=== PATIENT | male | born 1965 | race Caucasian/White ===

== ENCOUNTER 2021-08-05 06:12 | Day surgery (SDC) | payer OTHER ==
[~2021-08-05] VITALS: Ht 182.9 cm; Wt 86.2 kg
[~2021-08-05 06:12] MED LIST: PROAIR HFA8.5 GM INH; SINGULAIR 10 MG10 M1 PO; VITAMIN C500 M1 PO; VITAMIN D325 MC3 PO; ZINC30 M1 PO
[2021-08-05 06:42] VITALS: BP 129/84
--- NOTE | 2021-08-06 16:06 | PATH ---
[facility] [place] [address] PATHOLOGY RPT PROCEDURE Name: CHAPITO ESPOSITO Room #: DEP [facility]..#: [id number] Admission: 08/05/21 Date of : 67 Discharge: 08/05/21 Report #: [id number] Path Case #: [id number] [facility] Accession Number: [id number] . 01 Material submitted: . PART A: eyelid - BASAL CELL CARCINOMA RIGHT MEDIAL CANTHUS, UPPER EYELID, LOWER EYELID-FS. Modifiers: RIGHT MEDIAL CANTHUS, upper, lower PART B: eyelid - ADDITIONAL MEDIAL AND INFERIOR MARGINS-FS. Modifiers: right, medial, inferior . 01 Clinical history: . EXCISION BASAL CELL CARCINOMA BCCA DS 07/01.EXCISION BASAL CELL CARCINOMA A: RIGHT MEDIAL CANTHUS -BCC -TUMOR IS PRESENT AT BASE MEDIALLY AND INFERIOR MARGIN 1.7X1.0X0.5CM B: ADDITIONAL MEDIAL SUPERIOR MARGIN -MEDIAL IS POSITIVE -INFERIOR IS NEGATIVE 1.5X0.3X0.3CM . 02 Frozen section diagnosis: . FROZEN SECTION DIAGNOSIS: FSA1. Right medial canthus: - Basal cell carcinoma. - Tumor is present at base medially and inferior margins. . The report is given to Dr. Greenberg by Dr. Howell at 9:20 am and a written report is placed in the patient's chart. . FSB1. Additional medial and inferior margins: - Medial margin is positive. - Inferior margin is negative. . The report is given to Dr. Greenberg by Dr. Howell at 9:40 am and a written report is placed in the patient's chart on 08/05/2021. (ANK:janette; 08/05/2021) . FROZEN SECTION GROSS DESCRIPTION: A. Labeled with the patient's name and "basal cell carcinoma", right medial canthus, upper eyelid, lower eyelid". The specimen is received fresh from the operating room and consists of a skin ellipse which measures 1.7 x 1.0 x 0.5 cm. The specimen is oriented per surgeon as superior, medial, inferior, and lateral margins. The specimen is inked as follows: Superior to inferior margin is inked black, inferior to lateral margin is inked blue and lateral to superior margin is inked red. The specimen is serially sectioned and the superior, inferior tip, and [address] [address] PATHOLOGY RPT PROCEDURE Name: CHAPITO ESPOSITO Room #: DEP [facility].#: [id number] Admission: 08/05/21 Date of : 67 Discharge: 08/05/21 Report #: [id number] Path Case #: [id number] majority of the volunteer patient representative portion of the lesion is submitted for frozen section diagnosis in FSA1 and subsequently in block A1. . B. Labeled with the patient's name and "additional medial and inferior margins" and consists of a crescent shaped skin fragment which measures 1.5 x 0.3 x 0.3 cm. The new margin is inked black. The entire specimen is subjected to frozen section diagnosis in FSB1 and subsequently in B1. (ANK:janette; 08/05/2021) . Frozen section performed at [facility], [address] , [place] [address]. NNK/[facility] . 02 Diagnosis: A. Basal cell carcinoma right medial canthus, upper eyelid and lower eyelid, excision: - Basal cell carcinoma, tumor is present at the medial margin and inferior tip. - All other margins are negative. . B. Additional medial and inferior margins, excision: - Basal cell carcinoma present at the medial margin. - Inferior margin is free of tumor. (ANK:[facility]; 08/06/2021) QTP 08/06/2021 1136 Local . 02 Electronically signed: . Malinda Howell MD, Pathologist NPI- [id number] . 01 Gross description: . SEE FROZEN SECTION FOR GROSS DESCRIPTION /[facility] 08/05/2021 1154 Local . 02 Pathologist provided ICD-10: C44.1121, C44.1122 . 02 CPT . 012257, 775781, 336332, 976223 Specimen Comment: A courtesy copy of this report has been sent to [phone], [phone] Specimen Comment: [phone] Specimen Comment: Report sent to / DR PLATT Performed at: [address], [place], [place] [id number] [facility] [address] [place] [address] PATHOLOGY RPT PROCEDURE Name: CHAPITO ESPOSITO Room #: DEP [facility] Jesus.#: [id number] Admission: 08/05/21 Date of : 67 Discharge: 08/05/21 Report #: [id number] Path Case #: [id number] MD Dima Kyle MD Phone: [phone] Performed at: [address] [id number] MD Debbie Mcdermott MD Phone: [phone]
--- NOTE | 2021-08-11 10:47 | O ---
[facility] [place] [address] OPERATIVE REPORT Name: CHAPITO ESPOSITO Room #: DEP [facility].#: [id number] Admission: 08/05/21 Attend Phys: Yuriy Greenberg MD Discharge: 08/05/21 Date of : 67 Report #: [id number] THIS REPORT FOR: cc: Mateo Muñoz,Mateo Hirsch,Yuriy Alfaro MD ~ cc: Mateo Muñoz DO, Khanh Nguyen, MD, Maryann Grace MD DATE OF SERVICE: 08/05/2021 PREOPERATIVE DIAGNOSIS: Basal cell carcinoma of right upper lid, right medial canthus, right lower lid and bridge of nose. POSTOPERATIVE DIAGNOSIS: Basal cell carcinoma of right upper lid, right medial canthus, right lower lid and bridge of nose, multifocal. PROCEDURE: Excision of basal cell carcinoma of right upper lid, right lower lid, right medial canthus and bridge of nose of greater than 4 cm, myocutaneous flap repair of defect with full-thickness skin graft from left upper lid to right medial canthus. SURGEON: Yuriy Greenberg MD AIR TRAFFIC COORDINATOR: None. ANESTHESIA: General. COMPLICATIONS: None. INDICATIONS FOR SURGERY: This pleasant 55-year-old gentleman has a relatively large irregular basal cell carcinoma situated over the anterior limb of his medial canthal tendon. The lesion extends onto his upper lid, his lower lid and up onto the bridge of his nose. He presents today for excision of this tumor with frozen sections and subsequent reconstruction of that defect. Informed consent was obtained to include, but not limited to, the potential risk for loss of vision, bleeding, infection, failure to improve the problem, and the potential need for further surgery or treatment. DESCRIPTION OF PROCEDURE: The patient was taken to the operating room, where general anesthesia was administered. The right medial canthal area, the right upper lid, the right lower lid, and the bridge of the nose were all anesthetized with Xylocaine with epinephrine mixed with Marcaine and Wydase. The patient was subsequently prepped and draped in the usual sterile fashion. Utilizing a fine tip skin marking pen, the lesion was then outlined including approximately 2-3 mm of normal-appearing tissue. The incision included the [facility] [address] [place] [address] OPERATIVE REPORT Name: CHAPITO ESPOSITO Room #: DEP [facility]..#: [id number] Admission: 08/05/21 Attend Phys: Yuriy Greenberg MD Discharge: 08/05/21 Date of : 67 Report #: [id number] entire medial canthus and extended up onto the bridge of the nose in addition to being on the upper lid and the lower lid. The lesion was oriented on a drawing for the waiting pathologist and hemostasis was achieved in the field with diligent pinpoint monopolar cautery. The lesion was directly overlying the angular artery. The pathologist took that tissue and snap froze this and found that medially the tumor was still present and it also appeared to be present at the inferior tip. An additional inferior margin and the entire medial margin was then reexcised. It is worthy to note that this tissue looked entirely normal and was approximately 3 mm in width. The pathologist snap froze that tissue as I achieved hemostasis with monopolar cautery once more. The pathologist returned that the lesion was a multifocal basal cell and that there were patches of tumor by normal-appearing skin. With that information, I thought it was in the patient's best interest to not do further extension into excision rather and to treat him postoperatively with radiation after his full-thickness skin graft heals. The defect at this point was over 4 cm. A myocutaneous flap was then developed superiorly to be rotated into correct the upper lid defect. The relaxing incision made and the flap was advanced as far as possible to correct the upper lid defect. The flap was secured with interrupted buried Vicryl sutures deep and then 6-0 plain gut suture for use and final skin closure. The inferior aspect of the wound was inspected and a relaxing incision made parallel to the angular artery in a relaxed skin tension line and hemostasis was re-achieved here. A myocutaneous flap was then advanced here, advancing the flap superomedially to correct a portion of the lower lid defect. The flap was secured here with interrupted buried Vicryl sutures deep and then a final closure of 6-0 plain. This left a residual defect over the medial canthus and up onto the bridge of the nose. It was elected to correct this with a full thickness skin graft. An upper lid crease incision was then outlined on the left side, 10 mm above the mature lashes. A Graefe forceps was then used to quantitate the redundant amount of upper lid skin that could be removed and still allow the eye to close well. The incisions were made with a Omar scissor and a skin muscle flap removed with high-temp cautery. Hemostasis was achieved with diligent pinpoint monopolar cautery. The upper lid crease was then reformed with interrupted 6-0 chromic sutures and the skin closed subsequently with a 6-0 plain gut suture. The full thickness skin graft was then defatted. The skin graft was the same thickness as the skin in the medial canthus so it matched well for color. It was secured with cardinal bites of 7-0 Vicryl suture and then 6-0 plain gut [facility] [address] [place] [address] OPERATIVE REPORT Name: CHAPITO ESPOSITO Room #: DEP [facility] M.R.#: [id number] Admission: 08/05/21 Attend Phys: Yuriy Greenberg MD Discharge: 08/05/21 Date of : 67 Report #: [id number] sutures intervening. It was split in 3/4th and /4th sections, but the entire skin removed from the left upper lid was replaced into the residual defect. There was no extra skin leftover. The left upper lid was then dressed with erythromycin ophthalmic ointment followed by a Telfa pad. The right medial canthal area was then dressed with erythromycin ophthalmic ointment followed by Telfa pads that were subsequently held with [address] in [address] with silk tape and Mastisol. The patient was subsequently transported to the recovery area having tolerated the procedure well with the anticipated external beam radiation to be done later. <ELECTRONICALLY SIGNED> By: Yuriy Greenberg MD 08/11/21 1047 [id number] Yuriy Greenberg MD /nt
== END 2021-08-05 09:45 | disposition home or self-care (01) ==
LOC: OR 06:12 → TBA 06:18 → OR 09:10
PROVIDERS: ATTEND Ophthalmology
DX: C44.1121 Basal cell carcinoma of skin of right upper eyelid, including canthus (principal); C44.1122 Basal cell carcinoma of skin of right lower eyelid, including canthus; C44.311 Basal cell carcinoma of skin of nose; F17.210 Nicotine dependence, cigarettes, uncomplicated; Z98.890 Other specified postprocedural states; Z79.899 Other long term (current) drug therapy; Z20.822 Contact with and (suspected) exposure to COVID-19; Z85.46 Personal history of malignant neoplasm of prostate; Z88.6 Allergy status to analgesic agent
CPT/HCPCS: 50010; 50101; 50386; 50398; 51636; 56531; 62110; 62850; 64037; 70005